=== PATIENT | male | born 1940 | race Caucasian/White ===

== ENCOUNTER → 2016-10-02 | Outpatient (CLI) | payer OTHER ==
[~2016-10-02] VITALS: Ht 172.7 cm; Wt 83.9 kg
[~2016-10-02] MED LIST: ASPIR-TRIN325 M1 PO; ASPIRIN325 MG PO; BACTRIM,SEPT1 TABLET PO; BENICAR HCT1 TABLET PO; CEFDINIR300 MG PO; CEFTIN500 MG PO; CELEBREX200 MG PO; DELTASONE10 MG PO; DELTASONE20 MG PO; DESYREL100 MG PO; Desyrel PO; FLOMAX0.4 MG PO; Hydrodiuril,Oretic,E PO; IMITREX25 MG PO; Imitrex PO; LIPITOR80 MG PO; LO-DOSE ASPIRIN81 M2 PO; Metamucil Packet PO; NEXIUM40 MG PO; Opana ER PO; PERCOCET 5/31 TABLET PO; PLAVIX75 MG PO; PROTONIX40 MG PO; Prevacid PO; Robitussin DM PO; Rocephin IV; SENOKOT S,PE1 TABLET PO; SPIRIVA1 INHALATI IH; TERAZOSIN HCL2 MG PO; TOPROL XL50 MG PO; TORADOL10 MG PO; TRAZODONE HCL50 MG PO; TUMS500 MG PO; TYLENOL REGULA325 MG PO; Tessalon Perle PO; Toprol XL PO; ZOFRAN ODT4 MG PO; Zestril,Prinivil PO; [UNRECOGNIZED DRUG - OTHER] PO
== END | disposition home or self-care (01) ==
LOC: AMB 12:51
DX: K80.50 Calculus of bile duct without cholangitis or cholecystitis without obstruction (principal); I10 Essential (primary) hypertension; M19.90 Unspecified osteoarthritis, unspecified site; K21.9 Gastro-esophageal reflux disease without esophagitis; Z87.891 Personal history of nicotine dependence
CPT/HCPCS: 74328; C1757; C1769; J0330; J2250; J2405; J3010